=== PATIENT | male | born 1960 | race Hispanic/Latino ===

== ENCOUNTER 2016-11-03 19:30 | Emergency (ER) | payer MEDICARE ==
[2016-11-03] MEDS ORDERED: hyperRAB S/D IM ONE (21:14)
[2016-11-03] MEDS ORDERED: RABAVERT RABIES VACCINE(PCEC) IM ONE (21:14)
[2016-11-03] MEDS ORDERED: TENIVAC IM ONE (21:19)
[2016-11-03] MEDS ORDERED: NACL 0.9% 500 ML IR ONE (21:27)
[2016-11-03] MEDS ORDERED: AUGMENTIN 875 MG PO ONE (21:54)
--- NOTE | 2016-11-03 21:54 | Emergency Department Report ---
ED Animal Bite HPI - General Chief Complaint: Animal Bite Stated Complaint: DOG BITE/RT HAND Time Seen by Provider: 11/03/16 20:26 Source: EMS Mode of arrival: Ambulatory Limitations: No Limitations - History of Present Illness Initial Comments: 56-year-old male with a past medical history schizophrenia presents to the hospital with dog bite to right hand. The dog is a neighbor's dog and shots are not up-to-date. Animal control has the dog. Patient has schizophrenia and is chronically nonverbal. His manager of school at the [employer] is at the bedside and provided history of present illness. She confirms that patient is at his baseline. Patient's tetanus status unknown. - Related Data Home Medications Medication Instructions Recorded Confirmed Last Taken Benztropine [Cogentin] 1 mg PO BID 11/03/16 11/03/16 Unknown Glimepiride [Amaryl] 2 mg PO DAILY 11/03/16 11/03/16 Unknown LORazepam [Ativan] 1 mg PO QHS 11/03/16 11/03/16 Unknown Paliperidone [Invega] 6 mg PO BID 11/03/16 11/03/16 Unknown metFORMIN [Glucophage] 500 mg PO BID 11/03/16 11/03/16 Unknown Previous Rx's Medication Instructions Recorded Last Taken Type Amoxicillin/K Clav Tab [Augmentin 1 tab PO Q12HR #20 tab 11/03/16 Unknown Rx 875 mg] Allergies Allergy/AdvReac Type Severity Reaction Status Date / Time No Known Allergies Allergy Verified 11/03/16 20:20 ED Review of Systems ROS: Stated complaint: DOG BITE/RT HAND Other details as noted in HPI Comment: Unobtainable due to pts medical conditions (not speaking) ED Past Medical Hx - Past Medical History Previous Medical History?: Yes Hx Diabetes: Yes (type 2) Hx Psychiatric Treatment: Yes (schizophrenia) - Surgical History Past Surgical History?: No - Social History Smoking Status: Unknown if ever smoked - Medications Home Medications: Home Medications Medication Instructions Recorded Confirmed Last Taken Type Amoxicillin/K Clav Tab [Augmentin 1 tab PO Q12HR #20 tab 11/03/16 Unknown Rx 875 mg] Benztropine [Cogentin] 1 mg PO BID 11/03/16 11/03/16 Unknown History Glimepiride [Amaryl] 2 mg PO DAILY 11/03/16 11/03/16 Unknown History LORazepam [Ativan] 1 mg PO QHS 11/03/16 11/03/16 Unknown History Paliperidone [Invega] 6 mg PO BID 11/03/16 11/03/16 Unknown History metFORMIN [Glucophage] 500 mg PO BID 11/03/16 11/03/16 Unknown History ED Physical Exam - General Limitations: No Limitations - Other Other exam information: General: No limitations, patient is alert in no acute distress Head exam: Atraumatic, normocephalic Eyes exam: Normal appearance, pupils equal reactive to light, extraocular movements intact ENT: Moist mucous membrane, normal oropharynx Neck exam: Normal inspection, full range of motion Respiratory exam: Clear to auscultation bilateral, no wheezes, rales, crackles Cardiovascular: Normal rate and rhythm, normal heart sounds Abdomen: Soft, nondistended, and nontender, with normal bowel sounds, no rebound, or guarding Extremity: Right hand with multiple puncture wounds on the dorsum of the hand at the distal radial side of the forearm , thumb, base of nail bed and superficial scratch to palm. Positive subungual hemorrhage to the nail bed base. Patient does not reliably follow commands but does flex and extend all his fingers without difficulty. Back: Normal Inspection, full range of motion, no tenderness Neurologic: Alert, no motor or sensory deficit Psychiatric: normal affect, normal mood Skin: Warm, dry, intact ED Course Vital Signs 11/03/16 19:44 Temperature 98 F Pulse Rate 84 Respiratory 20 Rate Blood Pressure 132/85 Blood Pressure 132/85 [Left] O2 Sat by Pulse 97 Oximetry - Reevaluation(s) Reevaluation #1: 11/04/16 00:30 Patient remained stable and cooperative Critical Care Time: No Critical care attestation.: If time is entered above; I have spent that time in minutes in the direct care of this critically ill patient, excluding procedure time. ED Disposition Clinical Impression: Dog bite, Schizophrenia Disposition: DISCHARGED TO HOME OR SELFCARE Is pt being admited?: No Does the pt Need Aspirin: No Condition: Stable Instructions: Animal Bite (ED), Rabies (ED) Additional Instructions: You may take Motrin or Tylenol for pain. Follow-up for repeat rabies vaccinations until animal control can confirmed the dog does not have rabies. Prescriptions: Amoxicillin/K Clav Tab [Augmentin 875 mg] 1 tab PO Q12HR #20 tab Referrals: PRIMARY CARE,MD [Primary Care Provider] - 3-5 Days Time of Disposition: 00:31 ED Medical Decision Making - Radiology Data Radiology results: image reviewed (right hand/thumb x-ray: No acute fracture) - Medical Decision Making Patient received tetanus, Augmentin, rabies immune globulin and vaccination while in the ED. Dog is with animal control. Will be instructed to continue rabies vaccination until CLEARED by animal control. Antibiotics ointment applied to moans, gauze, and [place]. - Differential Diagnosis dog bite, rabies exposure, infection exposure, tetanus exposure
--- NOTE | 2016-11-04 00:44 | XRay Report ---
FINAL REPORT PROCEDURE: XR HAND 2V RT TECHNIQUE: RIGHT hand radiographs, AP, lateral, and oblique views. CPT 04365-AF HISTORY: dog bite COMPARISON: No prior studies are available for comparison. FINDINGS: Fracture (s) and/or Dislocation(s): None . Alignment: Normal . Joint space(s): Normal . Soft tissues: There is soft tissue swelling of the 1st digit.. Bone mineralization: Normal . Foreign bodies: None . IMPRESSION: There is soft tissue swelling of the 1st digit. There is no acute bony abnormality..
[2016-11-04 00:53] VITALS: BP 105/67
== END 2016-11-04 00:53 | disposition home or self-care (01) ==
LOC: ED 19:30
DX: S61.551A Open bite of right wrist, initial encounter (principal); F20.9 Schizophrenia, unspecified; E11.9 Type 2 diabetes mellitus without complications; W54.0XXA Bitten by dog, initial encounter; Y93.9 Activity, unspecified; Y92.9 Unspecified place or not applicable; Y99.9 Unspecified external cause status
CPT/HCPCS: 90375; 90471; 90472; 90675; 90714; 99284

== ENCOUNTER 2017-10-09 11:13 | Emergency (ER) | payer MEDICARE ==
[2017-10-09] MEDS ORDERED: BABY ASPIRIN PO ONE (11:56)
[2017-10-09] MEDS ORDERED: NACL 0.9% 1000 ML 1,000 ML IV ONE (11:56)
--- NOTE | 2017-10-09 12:02 | Emergency Department Report ---
ED Chest Pain HPI - General Chief Complaint: Chest Pain Stated Complaint: CHEST PAIN Time Seen by Provider: 10/09/17 11:51 Source: EMS Mode of arrival: Stretcher Limitations: Other - History of Present Illness Initial Comments: Patient is 57 years old male history of diabetes, bipolar disorder, patient is non-verbal. Brought by caregiver after patient was pointing to his left side of the chest. Can't get any more history from the patient. Caregivers denied any recent fever cough shortness of breath or vomiting. MD Complaint: chest pain Onset: during rest Pain Location: left chest - Related Data Home Medications Medication Instructions Recorded Confirmed Last Taken Benztropine [Cogentin] 1 mg PO BID 11/03/16 11/03/16 Unknown metFORMIN [Glucophage] 500 mg PO BID 11/03/16 11/03/16 Unknown Divalproex Sodium [Depakote ER] 500 mg PO BID 10/09/17 10/09/17 Unknown LORazepam [Ativan] 1 tab PO BID 10/09/17 10/09/17 Unknown Paliperidone Palmitate(Nf) [Invega 234 mg IM QMONTH 10/09/17 10/09/17 Unknown Sustenna(Nf)] SEROquel 100 mg PO QHS 10/09/17 10/09/17 Unknown Allergies Allergy/AdvReac Type Severity Reaction Status Date / Time Penicillins Allergy Unknown Verified 10/09/17 11:52 Heart Score - HEART Score History: Moderately suspicious EKG: Non-specific Age: 45-65 Risk factors: 1-2 risk factors Troponin: < normal limit HEART Score: 4 - Critical Actions Critical Actions: 4-6 pts:12-16.6% risk of adverse cardiac event. Should be admitted ED Review of Systems ROS: Stated complaint: CHEST PAIN Other details as noted in HPI Comment: All other systems reviewed and negative Respiratory: denies: cough, orthopnea, shortness of breath Cardiovascular: chest pain. denies: palpitations, dyspnea on exertion, orthopnea Gastrointestinal: denies: abdominal pain, nausea, vomiting Musculoskeletal: denies: back pain Neurological: denies: headache, weakness ED Past Medical Hx - Past Medical History Previous Medical History?: Yes Hx Diabetes: Yes (type 2) Hx Psychiatric Treatment: Yes (schizophrenia, bipolar) - Surgical History Past Surgical History?: No - Social History Smoking Status: Never Smoker Substance Use Type: None - Medications Home Medications: Home Medications Medication Instructions Recorded Confirmed Last Taken Type Benztropine [Cogentin] 1 mg PO BID 11/03/16 11/03/16 Unknown History metFORMIN [Glucophage] 500 mg PO BID 11/03/16 11/03/16 Unknown History Divalproex Sodium [Depakote ER] 500 mg PO BID 10/09/17 10/09/17 Unknown History LORazepam [Ativan] 1 tab PO BID 10/09/17 10/09/17 Unknown History Paliperidone Palmitate(Nf) [Invega 234 mg IM QMONTH 10/09/17 10/09/17 Unknown History Sustenna(Nf)] SEROquel 100 mg PO QHS 10/09/17 10/09/17 Unknown History ED Physical Exam - General Limitations: Other General appearance: alert, in no apparent distress - Head Head exam: Present: atraumatic, normocephalic, normal inspection - Eye Eye exam: Present: normal appearance, PERRL - ENT ENT exam: Present: normal exam, normal orophraynx, mucous membranes moist - Neck Neck exam: Present: normal inspection, full ROM. Absent: tenderness, meningismus, lymphadenopathy - Respiratory Respiratory exam: Present: normal lung sounds bilaterally. Absent: respiratory distress, wheezes, rales, rhonchi, stridor, chest wall tenderness, accessory muscle use, decreased breath sounds, prolonged expiratory - Cardiovascular Cardiovascular Exam: Present: regular rate, normal rhythm, normal heart sounds - GI/Abdominal GI/Abdominal exam: Present: soft, normal bowel sounds. Absent: distended, tenderness, guarding, rebound, rigid, organomegaly, mass, bruit, pulsatile mass , hernia - Extremities Exam Extremities exam: Present: normal inspection, full ROM, normal capillary refill. Absent: tenderness, pedal edema, joint swelling - Back Exam Back exam: Present: normal inspection, full ROM. Absent: tenderness, CVA tenderness (R), CVA tenderness (L) - Neurological Exam Neurological exam: Present: alert, oriented X3, CN II-XII intact, normal gait, reflexes normal - Skin Skin exam: Present: warm, intact, normal color ED Course Vital Signs 10/09/17 10/09/17 10/09/17 11:20 11:28 11:30 Temperature 98.4 F Pulse Rate 82 81 79 Respiratory 18 19 16 Rate Blood Pressure 115/64 115/64 O2 Sat by Pulse 96 94 Oximetry 10/09/17 10/09/17 10/09/17 11:46 11:50 12:00 Temperature Pulse Rate 73 75 Respiratory 11 L 12 Rate Blood Pressure 103/63 103/69 O2 Sat by Pulse 97 96 Oximetry 10/09/17 10/09/17 10/09/17 12:16 12:30 12:46 Temperature Pulse Rate 72 78 77 Respiratory 9 L 19 30 H Rate Blood Pressure 116/66 116/69 116/69 O2 Sat by Pulse 97 95 95 Oximetry 10/09/17 10/09/17 10/09/17 13:00 13:16 13:30 Temperature Pulse Rate 73 73 77 Respiratory 12 15 21 Rate Blood Pressure 116/70 116/70 123/72 O2 Sat by Pulse 95 97 Oximetry 10/09/17 10/09/17 10/09/17 13:46 14:00 14:16 Temperature Pulse Rate 81 78 84 Respiratory 14 15 13 Rate Blood Pressure 123/72 123/72 123/72 O2 Sat by Pulse 98 96 98 Oximetry 10/09/17 14:30 Temperature Pulse Rate Respiratory Rate Blood Pressure 128/78 O2 Sat by Pulse 97 Oximetry - Reevaluation(s) Reevaluation #1: 10/09/17 16:02 Patient observed in the ER to rule sets of troponin is negative. Patient family in the room and explained that he did not have any chest pain at this moment. Patient will be discharged to go back to his long-term. ED Medical Decision Making - Lab Data Result diagrams: 10/09/17 12:43 10/09/17 12:43 - EKG Data -: EKG Interpreted by Ms EKG shows normal: sinus rhythm Rate: normal - EKG Data Interpretation: no acute changes - Radiology Data Radiology results: report reviewed Referring Physician: PRAVIN CAMEJO Patient Name: TOÑO LEA Date of : 1960 Sex: Male Report Date: 2017-10-09 Report Status: Finalized Findings [facility] [address] [place] [address] XRay Report Signed Patient: TOÑO LEA I MR#: [id number] : 1960 Acct:[id number] Age/Sex: 57 / M ADM Date: 10/09/17 Loc: ED Attending Dr: Ordering Physician: PRAVIN CAMEJO Date of Service: 10/09/17 Procedure(s): XR chest 1V ap Accession Number(s): [id number] cc: PRAVIN CAMEJO Fluoro Time In Minutes: AP CHEST: HISTORY: chest pain AP view of the chest demonstrates a normal mediastinal and cardiac contour with clear lungs and normal bony and soft tissue structures. IMPRESSION: Unremarkable AP chest. Transcribed By: TTR Dictated By: JUANI RUFF JR, MD Electronically Authenticated By: JUANI RUFF JR, MD Signed Date/Time: 10/09/17 124 DD/ 1240 TD/TT: 10/09/17 1240 Critical care attestation.: If time is entered above; I have spent that time in minutes in the direct care of this critically ill patient, excluding procedure time. ED Disposition Clinical Impression: Chest pain, Hypoglycemia Disposition: DC-01 TO HOME OR SELFCARE Is pt being admited?: No Condition: Stable Instructions: Chest Pain (ED), Diabetic Hypoglycemia (ED) Referrals: PRIMARY CARE, [Primary Care Provider] - 3-5 Days
--- NOTE | 2017-10-09 12:47 | XRay Report ---
AP CHEST: HISTORY: chest pain AP view of the chest demonstrates a normal mediastinal and cardiac contour with clear lungs and normal bony and soft tissue structures. IMPRESSION: Unremarkable AP chest.
[2017-10-09 13:05] LABS: Basophils % (Auto) 0.7 % (0.0-1.8); Eosinophils # (Auto) 0.1 K/mm3 (0.0-0.4); Eosinophils % (Auto) 1.9 % (0.0-4.3); Hemoglobin 14.5 gm/dl (11.8-15.2); Lymphocytes # (Auto) 0.7 K/mm3 (1.2-5.4); Lymphocytes % (Auto) 16.6 % (13.4-35.0); Mean Corpuscular HGB Conc 35 % (32-34); Mean Corpuscular Hemoglobin 32 pg (28-32); Mean Corpuscular Volume 91 fl (84-94); Monocytes # (Auto) 0.7 K/mm3 (0.0-0.8); Monocytes % (Auto) 15.2 % (0.0-7.3); Red Blood Count 4.52 M/mm3 (3.65-5.03)
[2017-10-09 13:08] LABS: Platelet Count 72 K/mm3 (140-440)
[2017-10-09 13:13] LABS: INR 1.02 (0.87-1.13); Partial Thromboplastin Time 30.5 Sec. (24.2-36.6)
[2017-10-09 13:17] LABS: Alanine Aminotransferase 20 units/L (7-56); Albumin 4.1 g/dL (3.9-5); BUN/Creatinine Ratio 25; Blood Urea Nitrogen 20 mg/dL (9-20); Calcium 8.5 mg/dL (8.4-10.2); Hemolysis Index 10; Lipase 21 units/L (13-60)
[2017-10-09] MEDS ORDERED: D50W (25GM) Syringe IV ONE (13:29)
[2017-10-09 14:01] LABS: Bilirubin,Urine NEG (Negative); Blood,Urine SM (Negative); Color,Urine Yellow (Yellow); Protein,Urine <15 mg/dL mg/dL (Negative); WBC,Urine < 1.0 /HPF (0.0-6.0)
[2017-10-09 14:44] VITALS: BP 128/78
== END 2017-10-09 17:05 | disposition home or self-care (01) ==
LOC: ED 11:13
DX: R07.89 Other chest pain (principal); E11.649 Type 2 diabetes mellitus with hypoglycemia without coma; F31.9 Bipolar disorder, unspecified; F20.9 Schizophrenia, unspecified; Z79.84 Long term (current) use of oral hypoglycemic drugs; Z88.0 Allergy status to penicillin
CPT/HCPCS: 36415; 71045; 80053; 81001; 82962; 83690; 84484; 85025; 85379; 85610; 85730; 93005; 93010; 96361; 96374; 99284; J7030

== ENCOUNTER 2018-02-02 13:01 | Emergency (ER) | payer MEDICARE ==
--- NOTE | 2018-02-02 16:14 | Emergency Department Report ---
ED Extremity Problem HPI - General Chief complaint: Extremity Injury, Lower Stated complaint: R LEG PAIN Time Seen by Provider: 02/02/18 15:18 Source: patient, family Mode of arrival: Ambulatory Limitations: Physical Limitation - History of Present Illness Initial comments: Patient is a 57-year-old male who is in a longterm who is been brought in by one of his caregivers because of some increase in the size of his varicose veins on his right lower extremity. The patient is poorly verbal and is not able to state whether he is in extreme amount of pain however he does not grimace when grabbing the leg. Patient has not been complaining of any signs of shortness of breath he has not had any fevers chills according to his caregiver. - Related Data Home Medications Medication Instructions Recorded Confirmed Last Taken Benztropine [Cogentin] 1 mg PO BID 11/03/16 11/03/16 Unknown metFORMIN [Glucophage] 500 mg PO BID 11/03/16 11/03/16 Unknown Divalproex Sodium [Depakote ER] 500 mg PO BID 10/09/17 10/09/17 Unknown LORazepam [Ativan] 1 tab PO BID 10/09/17 10/09/17 Unknown Paliperidone Palmitate(Nf) [Invega 234 mg IM QMONTH 10/09/17 10/09/17 Unknown Sustenna(Nf)] SEROquel 100 mg PO QHS 10/09/17 10/09/17 Unknown Allergies Allergy/AdvReac Type Severity Reaction Status Date / Time Penicillins Allergy Unknown Verified 10/09/17 11:52 ED Review of Systems ROS: Stated complaint: R LEG PAIN Other details as noted in HPI Comment: Unobtainable due to pts medical conditions ED Past Medical Hx - Past Medical History Previous Medical History?: Yes Hx Diabetes: Yes (type 2) Hx Psychiatric Treatment: Yes (schizophrenia, bipolar) Additional medical history: MR - Surgical History Past Surgical History?: No - Social History Smoking Status: Never Smoker Substance Use Type: Prescribed - Medications Home Medications: Home Medications Medication Instructions Recorded Confirmed Last Taken Type Benztropine [Cogentin] 1 mg PO BID 11/03/16 11/03/16 Unknown History metFORMIN [Glucophage] 500 mg PO BID 11/03/16 11/03/16 Unknown History Divalproex Sodium [Depakote ER] 500 mg PO BID 10/09/17 10/09/17 Unknown History LORazepam [Ativan] 1 tab PO BID 10/09/17 10/09/17 Unknown History Paliperidone Palmitate(Nf) [Invega 234 mg IM QMONTH 10/09/17 10/09/17 Unknown History Sustenna(Nf)] SEROquel 100 mg PO QHS 10/09/17 10/09/17 Unknown History ED Physical Exam - General Limitations: Physical Limitation General appearance: alert, in no apparent distress - Head Head exam: Present: atraumatic, normocephalic - Eye Eye exam: Present: normal appearance - ENT ENT exam: Present: mucous membranes moist - Neck Neck exam: Present: normal inspection - Respiratory Respiratory exam: Present: normal lung sounds bilaterally. Absent: respiratory distress - Cardiovascular Cardiovascular Exam: Present: regular rate, normal rhythm. Absent: systolic murmur, diastolic murmur, rubs, gallop - GI/Abdominal GI/Abdominal exam: Present: soft, normal bowel sounds - Rectal Rectal exam: Present: deferred - Extremities Exam Extremities exam: Present: normal inspection, other (patient's right calf shows a very large prominent varicose veins that are present.) - Back Exam Back exam: Present: normal inspection - Neurological Exam Neurological exam: Present: alert, oriented X3 - Psychiatric Psychiatric exam: Present: normal affect, normal mood - Skin Skin exam: Present: warm, dry, intact, normal color. Absent: rash ED Course Vital Signs 02/02/18 13:30 Temperature 98.4 F Pulse Rate 91 H Respiratory 20 Rate Blood Pressure 123/70 O2 Sat by Pulse 95 Oximetry ED Medical Decision Making - Radiology Data interpreted by me: Ultrasound of the right lower extremity shows no DVT present Critical care attestation.: If time is entered above; I have spent that time in minutes in the direct care of this critically ill patient, excluding procedure time. ED Disposition Clinical Impression: Varicose vein of leg Qualifiers: Varicose vein complication: asymptomatic Laterality: right Qualified Code(s): I83.91 - Asymptomatic varicose veins of right lower extremity Disposition: DC-01 TO HOME OR SELFCARE Is pt being admited?: No Does the pt Need Aspirin: No Condition: Stable Instructions: Varicose Veins (ED) Referrals: SHIRLEY GARCIA MD [Staff Physician] - 3-5 Days
[2018-02-02 16:25] VITALS: BP 136/72
--- NOTE | 2018-02-06 09:48 | Vascular Lab Report ---
Right Lower Extremity Venous Duplex Study: Reason for Exam: Pain and swelling of the right lower extremity. Comments on the Right: All veins visualized are freely compressible without evidence of internal echogenicity. Flow is spontaneous and phasic throughout. No evidence of acute or chronic thrombus is seen in any of the vessels visualized. Varicose veins are noted in the mid calf. Comments on the Left: A limited duplex study was done of the proximal veins of the left lower extremity. All veins visualized are freely compressible without evidence of internal echogenicity. Flow is spontaneous and phasic throughout. No evidence of acute or chronic thrombus is seen in any of the vessels visualized. Impression: No evidence of acute or chronic deep venous thrombosis in the right lower extremity.
== END 2018-02-02 16:22 | disposition home or self-care (01) ==
LOC: ED 13:01
DX: I83.91 Asymptomatic varicose veins of right lower extremity (principal); E11.9 Type 2 diabetes mellitus without complications; F31.9 Bipolar disorder, unspecified; F20.9 Schizophrenia, unspecified; Z88.0 Allergy status to penicillin

== ENCOUNTER 2020-08-01 16:44 | Emergency (ER) | payer MEDICARE | END 2020-08-01 17:20 | LOC: ED 16:44 | DX: M79.89 Other specified soft tissue disorders (principal); R11.0 Nausea; Z53.21 Procedure and treatment not carried out due to patient leaving prior to being seen by health care provider ==